=== PATIENT | female | born 1945 | race Caucasian/White ===

== ENCOUNTER 2024-02-26 15:18 | Emergency (ER) | payer OTHER, BC ==
[2024-02-26 15:25] VITALS: BP 132/59; PULSE 92; RESP 18; TEMP 98.4; BMI 16.9
== END 2024-02-26 20:57 ==
LOC: JER 15:18
DX: S00.83XA Contusion of other part of head, initial encounter (principal); W01.198A Fall on same level from slipping, tripping and stumbling with subsequent striking against other object, initial encounter
CPT/HCPCS: 70450-TC; 93005; 93010; 99284-25

== ENCOUNTER 2024-03-15 09:24 | Emergency (ER) | payer OTHER, BC ==
[2024-03-15] MEDS ORDERED: IBUPROFEN 600 MG TABLET (FP) PO ONE (09:49)
[2024-03-15] MEDS ORDERED: LORazepam 1 MG TABLET ONE (09:57)
[2024-03-15] MEDS: IBUPROFEN 600 MG TABLET (FP) PO ONE (10:01)
[2024-03-15] MEDS: LORazepam 2 MG TABLET PO ONE (10:01)
[2024-03-15] MEDS ORDERED: KETOROLAC TROMETHAMINE 30 MG/1 ML VIAL ONE ×2 (10:16→13:50)
[2024-03-15] MEDS: KETOROLAC TROMETHAMINE 30 MG/1 ML VIAL IM ONE ×2 (11:30→13:53)
[2024-03-15 11:33] VITALS: RESP 18; TEMP 97.8; BMI 16.8
[2024-03-15] MEDS: MELATONIN 5 MG TABLETS PO ONE (14:35)
[2024-03-15 17:21] VITALS: BP 137/69; PULSE 69
== END 2024-03-15 18:26 ==
LOC: JER 09:24
DX: S22.42XA Multiple fractures of ribs, left side, initial encounter for closed fracture (principal); S22.059A Unspecified fracture of T5-T6 vertebra, initial encounter for closed fracture; S27.0XXA Traumatic pneumothorax, initial encounter; W01.0XXA Fall on same level from slipping, tripping and stumbling without subsequent striking against object, initial encounter
CPT/HCPCS: 70450-TC; 71045-TC-FY; 71250-TC; 72125-TC; 72128-TC; 99284-25

== ENCOUNTER 2024-04-14 13:11 | Inpatient (IN) | payer OTHER, BC ==
[2024-04-14 15:38] LABS: BASO % 0.4 % (0-2.0); HEMATOCRIT 33.9 % (32.4-45.2); HEMOGLOBIN 11.5 GM/dL (10.7-15.3); LYMPH % 21.1 % (8-40); MCH 32.7 pg (25.7-33.7); MCHC 33.9 g/dl (32.0-36.0); MEAN CELL VOLUME 96.5 fl (80-96); MEAN PLT VOLUME 10.2 fl (7.5-11.1); MONO % 14.7 % (3.8-10.2); NEUT % 63.8 % (42.8-82.8); PLATELET COUNT 163 10^3/uL (134-434); RBC 3.52 M/mm3 (3.60-5.2); RDW 14.8 % (11.6-15.6); WHITE BLOOD COUNT 5.7 K/mm3 (4.0-10.0)
[2024-04-14 16:04] LABS: POTASSIUM 3.4 mmol/L (3.5-5.1)
[2024-04-14 16:05] LABS: CALCIUM 10.2 mg/dL (8.5-10.1)
[2024-04-14 16:06] LABS: ALBUMIN 3.5 g/dl (3.4-5.0); BLOOD UREA NITROGEN 26.4 mg/dL (7-18)
[2024-04-14 16:09] LABS: CREATININE 1.1 mg/dL (0.55-1.3)
[2024-04-14 16:11] LABS: BILIRUBIN,TOTAL 0.4 mg/dL (0.2-1); TOT PROT 6.9 g/dl (6.4-8.2)
[2024-04-14] MEDS: THIAMINE HCL 200 MG/2 ML VIAL IVPB ONE (20:08)
[2024-04-14] MEDS: KCL 20 MEQ PREMIX BAG 20 MEQ/100 ML INFUS.BAG IVPB ONE (20:33)
[2024-04-14] MEDS: SODIUM CHLORIDE 0.9% 500 ML INFUS.BAG IV ONE (20:33)
[2024-04-14] MEDS: FOLIC ACID INJECTION - 1 MG, THIAMINE HCL 100 MG, MULTIVIT INJECTION ADULT 10 ML in SOD... IVPB ONE (20:45)
[2024-04-14] MEDS ORDERED: D5-1/2NS+10 MEQ KCL - 10 MEQ/1,000 ML INFUS.BAG IV SCH (23:15)
[2024-04-14 23:32] LABS: EPI CELLS 17 /uL (0-25.1); HYALINE CASTS 1 /uL (0-3.1); URINE APPEARANCE CLEAR; URINE BACTERIA 32 /uL (0-1359); URINE BILIRUBIN NEGATIVE (NEGATIVE); URINE COLOR YELLOW; URINE GLUCOSE (UA) TRACE (NEGATIVE); URINE KETONE 1+ (NEGATIVE); URINE LEUK ESTERASE 1+ (NEGATIVE); URINE NITRITE NEGATIVE (NEGATIVE); URINE PROTEIN TRACE (NEGATIVE); URINE RBC 13 /uL (0-23.9); URINE WBC 63 /uL (0-25.8)
[2024-04-15] MEDS ORDERED: KCL 10 MEQ IVPB 30 MEQ/300 ML INFUS.BAG IVPB ONE ×2 (00:38→12:16)
[2024-04-15] MEDS ORDERED: ACETAMINOPHEN 325 MG TABLET (FP) PO PRN (01:04)
[2024-04-15] MEDS: KCL 10 MEQ IVPB 10 MEQ/100 ML INFUS.BAG IVPB SCH ×3 (01:05→18:53)
[2024-04-15] MEDS ORDERED: MELATONIN 5 MG TABLETS PO PRN (01:05)
[2024-04-15] MEDS: PANTOPRAZOLE 40 MG TABLET PO SCH (01:13)
[2024-04-15] MEDS: D5-1/2NS+10 MEQ KCL - 10 MEQ/1,000 ML INFUS.BAG IV SCH (02:33)
[2024-04-15] MEDS ORDERED: KCL 10 MEQ IVPB 10 MEQ/100 ML INFUS.BAG IVPB ONE ×3 (03:45→20:45)
[2024-04-15] MEDS ORDERED: PANTOPRAZOLE 40 MG TABLET PO ONE (07:45)
[2024-04-15 08:32] LABS: BASO % 0.4 % (0-2.0); EOS % 0.2 % (0-4.5); HEMATOCRIT 33.3 % (32.4-45.2); HEMOGLOBIN 11.1 GM/dL (10.7-15.3); LYMPH % 26.8 % (8-40); MCH 32.5 pg (25.7-33.7); MCHC 33.4 g/dl (32.0-36.0); MEAN CELL VOLUME 97.3 fl (80-96); MEAN PLT VOLUME 10.4 fl (7.5-11.1); MONO % 16.6 % (3.8-10.2); PLATELET COUNT 162 10^3/uL (134-434); RBC 3.42 M/mm3 (3.60-5.2); RDW 14.4 % (11.6-15.6); WHITE BLOOD COUNT 5.4 K/mm3 (4.0-10.0)
[2024-04-15 08:42] LABS: POTASSIUM 3.3 mmol/L (3.5-5.1)
[2024-04-15 08:45] LABS: BLOOD UREA NITROGEN 17.9 mg/dL (7-18); CALCIUM 9.7 mg/dL (8.5-10.1)
[2024-04-15 08:48] LABS: CREATININE 0.9 mg/dL (0.55-1.3)
[2024-04-15] MEDS ORDERED: AMANTADINE HCL 100 MG TABLET PO SCH ×3 (09:05→10:00)
[2024-04-15] MEDS ORDERED: PANTOPRAZOLE 40 MG TABLET PO SCH (10:00)
[2024-04-15] MEDS: HEPARIN NA (PORCINE) 5,000 UNITS/ML 1ML VIAL SQ SCH (12:40)
[2024-04-15] MEDS: CYANOCOBALAMIN 1,000 MCG TABLET (FP) PO SCH (12:40)
[2024-04-15] MEDS: FOLIC ACID 1 MG TABLET (FP) PO SCH (12:40)
[2024-04-15] MEDS: AMANTADINE HCL 100 MG TABLET PO SCH (12:40)
[2024-04-15] MEDS ORDERED: HEPARIN NA (PORCINE) 5,000 UNITS/ML 1ML VIAL ONE (21:55)
[2024-04-15] MEDS: DIVALPROEX NA *ER* EXTEND REL 500 MG TABLET.SA (FP) PO SCH (22:58)
[2024-04-15] MEDS: OLANZapine 10 MG TABLET PO SCH (22:58)
[2024-04-16 07:50] LABS: BASO % 0.4 % (0-2.0); EOS % 0.4 % (0-4.5); HEMATOCRIT 35.7 % (32.4-45.2); HEMOGLOBIN 12.1 GM/dL (10.7-15.3); LYMPH % 26.3 % (8-40); MCH 32.7 pg (25.7-33.7); MCHC 33.7 g/dl (32.0-36.0); MEAN PLT VOLUME 10.3 fl (7.5-11.1); NEUT % 55.9 % (42.8-82.8); PLATELET COUNT 172 10^3/uL (134-434); RBC 3.68 M/mm3 (3.60-5.2); RDW 14.4 % (11.6-15.6); WHITE BLOOD COUNT 6.6 K/mm3 (4.0-10.0)
[2024-04-16 08:03] LABS: POTASSIUM 4.4 mmol/L (3.5-5.1)
[2024-04-16 08:06] LABS: CALCIUM 10.2 mg/dL (8.5-10.1)
[2024-04-16 08:10] LABS: CREATININE 0.7 mg/dL (0.55-1.3)
[2024-04-16] MEDS ORDERED: CARBIDOPA/LEVODOPA 25/100 TABLET (FP) ONE (16:44)
[2024-04-17 04:48] VITALS: BMI 18.5
[2024-04-18] MEDS: MULTIVITAMINS THER W-MINERALS COMBO TABLET (FP) PO SCH (10:42)
[2024-04-18 14:46] VITALS: RESP 18
[2024-04-19 14:57] VITALS: BP 112/61; PULSE 78; TEMP 98.6
== END 2024-04-19 18:30 | disposition home or self-care (01) | DRG 640 ==
LOC: JER 13:11 → JERBED 22:54 → OBSVTOIN 23:07 → J6S 04-16 21:49
PROVIDERS: ADMIT Internal Medicine; ATTEND Internal Medicine
DX: E86.0 Dehydration (principal); E43 Unspecified severe protein-calorie malnutrition; R64 Cachexia; Z68.1 Body mass index [BMI] 19.9 or less, adult; R29.6 Repeated falls; F03.90 Unspecified dementia, unspecified severity, without behavioral disturbance, psychotic disturbance, mood disturbance, and anxiety; G20.A1 Parkinson's disease without dyskinesia, without mention of fluctuations; F20.9 Schizophrenia, unspecified; R79.89 Other specified abnormal findings of blood chemistry; E83.52 Hypercalcemia; F31.9 Bipolar disorder, unspecified; R55 Syncope and collapse; E87.6 Hypokalemia; H91.8X2 Other specified hearing loss, left ear; E53.8 Deficiency of other specified B group vitamins
CPT/HCPCS: 36415; 70450-TC; 71045-TC-FY; 80048; 80053; 81003; 82962; 83735; 84132; 84484; 85025; 87086; 93005; 93010; 93306-TC; 97116-GP; 97162-GP; 99285-25; G0378; J1644